=== PATIENT | male | born 1975 | race Caucasian/White ===

== ENCOUNTER 2018-05-13 12:18 | Observation (INO) ==
[2018-05-14] MEDS ORDERED: Vancomycin Consult Pharmacy 1 EACH OTHER SCH (01:00)
[2018-05-14] MEDS ORDERED: Piperacil/Tazo 4.5 GM Premix 4.5 GM/100 ML BAG IV.SIG SCH (02:15)
[2018-05-14] MEDS: Metoprolol Tartrate 50 MG Tablet PO SCH ×2 (09:00→20:59)
[2018-05-14] MEDS: Piperacil/Tazo 4.5 GM Premix 4.5 GM/100 ML BAG IV.SIG SCH ×3 (09:01→20:59)
--- NOTE | 2018-05-14 10:16 | P.PNIM ---
Subjective Interval history: He is in bed appears in not acute distress at this time. However he is complaining of more pain and says he follows up with pain management Index. Says he wants more pain medications. Also complains of diarrhea 2 times since morning. No fever or chills, no abdominal cramps. No nausea or vomiting. Start Lactinex. Obtain stool studies for C. difficile. Otherwise no other complaints. GENERAL: This is a 42-year-old male, well-nourished, well-developed patient, in no apparent distress. CARDIOVASCULAR: Regular rate and rhythm without murmurs, gallops, or rubs. RESPIRATORY: Clear to auscultation. Breath sounds equal bilaterally. No wheezes , rales, or rhonchi. GASTROINTESTINAL: Abdomen soft, non-tender, nondistended.. No guarding. MUSCULOSKELETAL: Bilateral lower extremities with multiple superficial skin abrasions superficial cuts dry Left lower extremity noted with more swelling noted on the lateral aspect of the leg mild fluctuance no definite mass. Compared to the right lower extremity Good peripheral pulses dorsalis pedis posterior tibialis +2 on both lower extremities NEUROLOGICAL: Awake and alert. Cranial nerves II through XII intact. Motor and sensory grossly within normal limits. Five out of 5 muscle strength in all muscle groups. Normal speech. 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 Patient denies or any feeling of bites sensation. Rapidly progressing cellulitis both lower extremities left more than the right with superficial wounds. r/o deeper soft tissue infection abscess/fasciitis. Does not recall or any sensation of any bites while in the water. MRI of the left LE continue on IV Vancomycin and zosyn. Continue Doxyccyline for vibrio coverage As needed pain meds. Awaiting cultures and sensitivities History of hypertension. Blood pressure is fairly controlled at this time. Monitor vital signs and adjust medications as needed Continue metoprolol 50 mg twice a day Continue on clonidine 0.3 mg daily- will change to scheduled 0.1 mg po tid and monitor History of neuropathy. Continue on meds gabapentin 800 mg 3 times a day Continue on Flexeril 10 mg at bedtime If imaging studies negative for any abscess or no plan procedure, start patient on Lovenox. Code Status full code Discussed Condition With patient, nurse Physical Exam Vital signs: Vital Signs 05/14/18 03:40 05/14/18 08:00 Temperature 98.7 F 98.1 F Pulse Rate 60 69 Respiratory Rate 17 20 Blood Pressure 120/65 135/78 Pulse Oximetry 97 99 Intake & Output 05/13/18 05/14/18 05/14/18 18:59 06:59 18:59 Weight 100 kg Results - Labs CBC & Chem 7: 05/13/18 10:50 05/13/18 10:50 Laboratory Results - last 24 hr 05/13/18 05/13/18 05/13/18 10:50 10:50 10:50 WBC RBC Hgb Hct MCV MCH MCHC RDW Plt Count MPV Neut % (Auto) Lymph % (Auto) [place] % (Auto) Eos % (Auto) Baso % (Auto) Neut # (Auto) Lymph # (Auto) [place] # (Auto) Eos # (Auto) Baso # (Auto) CBC Comment PT 11.3 INR 1.1 APTT 27.1 Sodium 141 Potassium 3.5 Chloride 104 Carbon Dioxide 29.8 Anion Gap 7 BUN 14 Creatinine 0.98 Estimated GFR 84 L Random Glucose 110 H Lactic Acid 1.6 Calcium 8.4 L Total Bilirubin 0.4 AST 18 ALT 24 Alkaline Phosphatase 84 Total Protein 7.4 Albumin 3.8 05/13/18 10:50 WBC 6.1 RBC 4.55 Hgb 13.1 Hct 39.9 MCV 87.8 MCH 28.9 MCHC 32.9 RDW 13.3 Plt Count 154 MPV 8.5 Neut % (Auto) 48.4 Lymph % (Auto) 38.7 [place] % (Auto) 10.0 H Eos % (Auto) 2.3 Baso % (Auto) 0.6 Neut # (Auto) 3.0 Lymph # (Auto) 2.4 [place] # (Auto) 0.6 Eos # (Auto) 0.1 Baso # (Auto) 0.0 CBC Comment DIFF FINAL PT INR APTT Sodium Potassium Chloride Carbon Dioxide Anion Gap BUN Creatinine Estimated GFR Random Glucose Lactic Acid Calcium Total Bilirubin AST ALT Alkaline Phosphatase Total Protein Albumin
[2018-05-14] MEDS: Sod Chloride 0.9% Inj 1,000 ML IV.SIG SCH ×2 (10:20→23:46)
[2018-05-14] MEDS: Vancomycin Inj 1,250 MG in Sodium Chlor 0.9% Inj 250 ML IV.SIG SCH ×2 (10:49→23:46)
[2018-05-14] MEDS ORDERED: Pharmacy Ordered Lab Info OTHER ONE (21:45)
[2018-05-15 00:38] LABS: Bilirubin,Urine Negative (Negative); Calcium Oxalate Crystals,Urine Rare /hpf; Clarity,Urine Clear (Clear); Color,Urine Yellow (Yellw/Straw); Glucose,Urine (UA) Negative (Negative); Leukocyte Esterase,Urine Negative (Negative); Mucus,Urine Few /lpf (Occasional); Nitrite,Urine Negative (Negative)
[2018-05-15] MEDS: Piperacil/Tazo 4.5 GM Premix 4.5 GM/100 ML BAG IV.SIG SCH ×2 (03:51→08:48)
[2018-05-15 04:44] LABS: Baso % (Auto) 0.5 % (0.0-2.0); Eos # (Auto) 0.2 th/mm3 (0.0-0.4); Eos % (Auto) 3.2 % (0.0-4.0); Hematocrit 38.9 % (39.0-51.0); Lymph # (Auto) 2.3 th/mm3 (1.0-4.8); Lymph % (Auto) 40.1 % (9.0-44.0); Mean Corpuscular HGB Conc 33.4 % (32.0-36.0); Mean Corpuscular Volume 86.8 fL (80.0-100.0); Mean Platelet Volume 8.4 fL (7.0-11.0); Mono # (Auto) 0.4 th/mm3 (0.0-0.9); Mono % (Auto) 6.5 % (0.0-8.0); Neut # (Auto) 2.9 th/mm3 (1.8-7.7); Neut % (Auto) 49.7 % (16.0-70.0); Platelet Count 146 th/mm3 (150-450); Red Blood Count 4.48 mil/mm3 (4.50-5.90); Red Cell Distribution Width 13.6 % (11.6-17.2); White Blood Count 5.8 th/mm3 (4.0-11.0)
[2018-05-15 05:09] LABS: Calcium 8.9 mg/dL (8.5-10.1); Carbon Dioxide 29.6 meq/L (21.0-32.0); Potassium 3.7 meq/L (3.5-5.1)
[2018-05-15] MEDS: Metoprolol Tartrate 50 MG Tablet PO SCH ×2 (08:48→22:09)
[2018-05-15] MEDS: Lactobacillus Acidophilus/L. Spores Tablet PO SCH ×2 (08:48→22:09)
--- NOTE | 2018-05-15 13:56 | P.PN ---
Subjective Interval history: Patient complains of left lower extremity pain. He states that the left lower extremity is more swollen. Movement makes it worse. states that the draining has resolved but the pain/swelling is about the same. denies any CP/SOB/N/V Physical Exam Vital signs: Vital Signs 05/14/18 14:12 05/14/18 16:00 05/14/18 20:18 Temperature 98 F 98.2 F Pulse Rate 53 L 54 L Respiratory Rate 20 20 16 Blood Pressure 129/81 148/85 H Pulse Oximetry 99 98 05/14/18 23:09 05/15/18 03:38 05/15/18 05:30 Temperature 98.1 F Pulse Rate 52 L Respiratory Rate 16 16 18 Blood Pressure 141/91 H Pulse Oximetry 98 05/15/18 05:38 05/15/18 08:00 05/15/18 12:23 Temperature 98.5 F 98.1 F 98.1 F Pulse Rate 52 L 57 L 59 L Respiratory Rate 18 18 Blood Pressure 160/106 H 151/102 H 119/62 Pulse Oximetry 98 98 97 Intake & Output 05/14/18 05/15/18 05/15/18 18:59 06:59 18:59 Intake Total 462.5 / 462.5 462.5 / 462.5 100 / 100 Balance 462.5 / 462.5 462.5 / 462.5 100 / 100 Intake: IV 462.5 / 462.5 462.5 / 462.5 100 / 100 Zosyn 4.5 GM Premix 4.5 gm In 200 / 200 200 / 200 100 / 100 100 ml @ 200 mls/hr IV.SIG Q6H PIOTR Rx#:[id number] Vancomycin Inj 1,250 MG In NS 262.5 / 262.5 262.5 / 262.5 Inj 250 ML @ 250 mls/hr IV.SIG Q12H PIOTR Rx#:[id number] Other: Date of Last Bowel Movement 05/15/18 Narrative: GENERAL: This is a 42-year-old male,laying in bed, left lower ext elevated w pillow under CARDIOVASCULAR: Regular rate and rhythm without murmurs RESPIRATORY: Clear to auscultation. Breath sounds equal bilaterally. No wheezes GASTROINTESTINAL: Abdomen soft, non-tender, nondistended.. No guarding. MUSCULOSKELETAL: Bilateral lower extremities with multiple superficial skin abrasions superficial cuts dry Left lower extremity noted with more swelling noted on the lateral aspect of the leg, no fluctuace or masses but very tender to palpation compared to the right lower extremity Good peripheral pulses dorsalis pedis posterior tibialis. able to wiggle his toes. NEUROLOGICAL: Awake and alert. Normal speech. Results - Labs CBC & Chem 7: 05/15/18 04:21 05/15/18 04:21 Laboratory Results - last 24 hr 05/14/18 05/14/18 05/15/18 21:05 23:30 04:21 WBC 5.8 RBC 4.48 L Hgb 13.0 Hct 38.9 L MCV 86.8 MCH 29.0 MCHC 33.4 RDW 13.6 Plt Count 146 L MPV 8.4 Neut % (Auto) 49.7 Lymph % (Auto) 40.1 [place] % (Auto) 6.5 Eos % (Auto) 3.2 Baso % (Auto) 0.5 Neut # (Auto) 2.9 Lymph # (Auto) 2.3 [place] # (Auto) 0.4 Eos # (Auto) 0.2 Baso # (Auto) 0.0 WBC Differential . Differential Comment Auto diff final Sodium Potassium Chloride Carbon Dioxide Anion Gap BUN Creatinine Estimated GFR Random Glucose Calcium Urine Color Yellow Urine Clarity Clear Urine pH 6.0 Ur Specific [place] 1.020 Urine Protein Negative Urine Glucose (UA) Negative Urine Ketones Negative Urine Occult Blood Negative Urine Nitrate Negative Urine Bilirubin Negative Urine Urobilinogen Less than 2 Ur Leukocyte Esterase Negative Urine WBC 1 Calcium Oxalate Crystal Rare H Urine Mucus Few H Micro UA Comment Culture not ind Urine Culture Comments Culture not ind Vancomycin Trough 10.0 05/15/18 04:21 WBC RBC Hgb Hct MCV MCH MCHC RDW Plt Count MPV Neut % (Auto) Lymph % (Auto) [place] % (Auto) Eos % (Auto) Baso % (Auto) Neut # (Auto) Lymph # (Auto) [place] # (Auto) Eos # (Auto) Baso # (Auto) WBC Differential Differential Comment Sodium 143 Potassium 3.7 Chloride 105 Carbon Dioxide 29.6 Anion Gap 8 BUN 8 Creatinine 0.96 Estimated GFR 86 L Random Glucose 100 Calcium 8.9 Urine Color Urine Clarity Urine pH Ur Specific [place] Urine Protein Urine Glucose (UA) Urine Ketones Urine Occult Blood Urine Nitrate Urine Bilirubin Urine Urobilinogen Ur Leukocyte Esterase Urine WBC Calcium Oxalate Crystal Urine Mucus Micro UA Comment Urine Culture Comments Vancomycin Trough Assessment and Plan - Plan 42-year-old male with history of hypertension, neuropathy 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 Patient denies or any feeling of bites sensation. Rapidly progressing cellulitis both lower extremities left more than the right with superficial wounds. r/o deeper soft tissue infection abscess/fasciitis. Does not recall or any sensation of any bites while in the water. MRI of the left LE showed diffuse subcutaneous swelling involving the left ramirez suggesting possible cellulitis. no evidence of osteomyelitis or deep tissue abscess. on IV Vancomycin and zosyn and po doxy wound cx growing enterobacter cloacae and acinetobacter baumannii/haemol both sensitive to levaquin. I will d/c IV vanco/zosyn and switch to levaquin IV and transition to po levaquin. Monitor closely for improvement. If worsening, will consult ID. check u/s LE left to r/o any DVT as leg is swollen and also very tender. Could just be from the infection. History of hypertension. Blood pressure is fairly controlled at this time. Monitor vital signs and adjust medications as needed Continue metoprolol 50 mg twice a day he is on clonidine 0.3 mg daily- which was switched 0.1 mg po tid. Monitor BP's closely and adjust as needed History of neuropathy. Continue on meds gabapentin 800 mg 3 times a day Continue on Flexeril 10 mg at bedtime Pt claimed that he has been on oxycodone 10mg po 3-4 times daily. We called pt' s pharmacy and we were notified that this was switch to norco 5/325 mg and that pt doesn't have any new/recent scripts for oxycodone. DVT proph: heparin
--- NOTE | 2018-05-15 15:01 | US ---
EXAM DATE: 05/15/2018 2:54 PM EDT AGE/SEX: 42 years / Male INDICATIONS: Left leg swelling. CLINICAL DATA: This is the patient's initial encounter. Patient reports that signs and symptoms have been present for 3 days and indicates a pain score of 7/10. MEDICAL/SURGICAL HISTORY: Hypertension. Neuropathy. None. COMPARISON: No prior exams available for comparison. TECHNIQUE: Venous ultrasound of both lower extremities was performed from the inguinal ligament to t he proximal calf. Real-time, color Doppler and spectral tracing, compression and augmentation techni ques were used. FINDINGS: Normal compression of the deep venous system from the inguinal region to the proximal calf . No echogenic clot is seen. Normal response of the venous system to augmentation and respiration. Th ere is some edema in the soft tissues of the calf. CONCLUSION: 1. No evidence of DVT. Electronically signed by: Dario Diaz MD 05/15/2018 3:00 PM EDT
[2018-05-15] MEDS: Vancomycin Inj 1,250 MG in Sodium Chlor 0.9% Inj 250 ML IV.SIG SCH (19:49)
[2018-05-15] MEDS: Heparin - SQ 10,000 UNITS/ML Vial SQ SCH (22:09)
[2018-05-16] MEDS: Sod Chloride 0.9% Inj 1,000 ML IV.SIG SCH (06:36)
[2018-05-16] MEDS ORDERED: Pharmacy Ordered Lab Info OTHER ONE (09:45)
[2018-05-16] MEDS: Metoprolol Tartrate 50 MG Tablet PO SCH (09:50)
[2018-05-16] MEDS: Lactobacillus Acidophilus/L. Spores Tablet PO SCH (09:52)
[2018-05-16] MEDS: Heparin - SQ 10,000 UNITS/ML Vial SQ SCH (09:52)
--- NOTE | 2018-05-16 14:21 | P.DS ---
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 Patient had to go into the field of water to check on the pipes and while doing this water got into his boots. The next day patient complained of generalized feeling of malaise, "does not feel good" , with complaints of both legs feels like they are "on fire. Patient denies any fever or chills however felt hot and warm. He specifically denies any feeling ors sensation of bites in his legs/ skin when asked while he was in the water. However woke up the next day bilateral leg erythema and multiple superficial skin abrasions and cuts unclear how he got these. Persistence of which prompted patient to come in here today and was noted to have rapidly involving erythema of both legs left more than the right. Also on exam- noted more swelling of the left lateral aspect of the leg- no definite mass but with some ild fluctuance on exam. Patient admitted for further evaluation and management. DS: Diagnosis - Discharge Diagnosis (1) Cellulitis Status: Acute DS: Medications - Discharge Medications Prescriptions: acidophilus-sporogenes [Acidophilus Ex Str (L. sporog)] 1 tab PO BID #30 tab clonidine HCl [Catapres] 0.1 mg PO Q8HR #90 tab levofloxacin [Levaquin] 750 mg PO DAILY #8 tab metoprolol tartrate 50 mg PO Q12HR #60 tab oxycodone 5 mg PO Q8H PRN #9 cap PRN Reason: Pain (Scale Score 7-10) DS: Summary Hospital Course: Pt was admitted for Rapidly progressing cellulitis both lower extremities left more than the right with superficial wounds. MRI of the left LE showed diffuse subcutaneous swelling involving the left ramirez suggesting possible cellulitis. no evidence of osteomyelitis or deep tissue abscess. was initially on IV Vancomycin and zosyn and po doxy. wound cx grew enterobacter cloacae and acinetobacter baumannii/haemol both sensitive to levaquin. IV abx were stopped and switched to levaquin IV. Pt felt a lot better and erythema improved. He was transitioned to po levaquin for a total of 10 days. u/s LE was neg for DVT. Pt was instructed to f/u w PCP in 2-3 days for a quick f/u and make sure his cellulitis continues to improve. - Time Spent with Patient Total time spent providing and/or coordinating discharge services: Exam Vital signs: Vital Signs 05/15/18 17:29 05/15/18 21:52 05/16/18 01:12 Temperature 98.3 F 98.2 F 98.1 F Pulse Rate 74 67 56 L Respiratory Rate 20 16 16 Blood Pressure 169/114 H 141/82 H 149/101 H Pulse Oximetry 98 97 96 05/16/18 04:00 05/16/18 06:40 05/16/18 08:54 Temperature 97.8 F 98.0 F Pulse Rate 60 66 Respiratory Rate 16 18 Blood Pressure 125/83 172/106 H 171/97 H Pulse Oximetry 98 97 05/16/18 11:25 05/16/18 12:32 Temperature 98.1 F 98.7 F Pulse Rate 58 L 58 L Respiratory Rate 18 16 Blood Pressure 141/91 H 168/104 H Pulse Oximetry 98 100 Intake & Output 05/15/18 05/16/18 05/16/18 18:59 06:59 18:59 Intake Total 100 / 100 1150 / 1150 150 / 150 Balance 100 / 100 1150 / 1150 150 / 150 Intake: IV 100 / 100 1150 / 1150 150 / 150 Levaquin 750 mg Premix Inj 150 150 / 150 150 / 150 ML @ 100 mls/hr IV.SIG Q24H PIOTR Rx#:[id number] Zosyn 4.5 GM Premix 4.5 gm In 100 / 100 100 ml @ 200 mls/hr IV.SIG Q6H PIOTR Rx#:[id number] NS Inj 1,000 ML @ 50 mls/hr IV. 1000 / 1000 SIG .Q20H PIOTR Rx#:[id number] Other: # Voids 4 Date of Last Bowel Movement 05/15/18 # Bowel Movements 0 Narrative: GENERAL: This is a 42-year-old male,laying in bed, left lower ext elevated w pillow under CARDIOVASCULAR: Regular rate and rhythm without murmurs RESPIRATORY: Clear to auscultation. Breath sounds equal bilaterally. No wheezes GASTROINTESTINAL: Abdomen soft, non-tender, nondistended.. No guarding. MUSCULOSKELETAL: Bilateral lower extremities with multiple superficial skin abrasions superficial cuts dry Left lower extremity noted with less swelling noted on the lateral aspect of the leg, no fluctuace or masses but somewhat tender to palpation compared to the right lower extremity Good peripheral pulses dorsalis pedis posterior tibialis. able to wiggle his toes. Results Procedures completed during hospitalization: none - Impressions ITS Impressions Venous Doppler Study 05/15/18 00:00 CONCLUSION: 1. No evidence of DVT. Discharge Plan - Discharge Disposition Patient Disposition: Discharge Home - Discharge Condition Condition: Stable - Discharge Order Discharge Orders: Discharge Order (Routine); Ordered 05/16/18 Ordered By: Narda Antunez - Discharge Details Discharge Comment: Please wait for levaquin infusion to be completed prior to discharging pt today - Physicians Team Primary Care Provider: Jesus Brice I Attending Provider: Nrada Antunez - Rxs /Orders / Referrals /Forms Prescriptions: New acidophilus-sporogenes [Acidophilus Ex Str (L. sporog)] 35 million- 25 million cell Tablet 1 tab PO BID Qty: 30 RF: 0 clonidine HCl [Catapres] 0.1 mg Tablet 0.1 mg PO Q8HR Qty: 90 RF: 0 levofloxacin [Levaquin] 750 mg Tablet 750 mg PO DAILY Qty: 8 RF: 0 metoprolol tartrate 50 mg Tablet 50 mg PO Q12HR Qty: 60 RF: 0 oxycodone 5 mg Capsule 5 mg PO Q8H PRN (Reason: Pain (Scale Score 7-10)) Qty: 9 RF: 0 Continue ibuprofen 600 mg Tablet 600 mg PO TID Discontinued hydrocodone-acetaminophen 5-325 mg Tablet 1 tab PO Q6H PRN (Reason: Pain) Referrals: Jesus Brice MD [Primary Care Provider] - See Instructions (f/u w PCP in 2 -3 days )
== END 2018-05-16 11:10 | disposition home or self-care (01) ==
LOC: NEPFCDU 12:18
PROVIDERS: ADMIT Hospitalist; ATTEND Hospitalist